=== PATIENT | female | born 1975 | race Caucasian/White ===

== ENCOUNTER 2021-09-28 14:45 | Emergency (ER) | payer MEDICAID ==
[2021-09-28] MEDS ORDERED: IV NORMAL SALINE 1,000ML 1,000 ML IV ONE (15:00)
--- NOTE | 2021-09-28 15:40 | PHYS DOC ---
General Adult EDM: Chief Complaint: PSYCH EVALUATION HPI: HPI: 46-year-old female presents via EMS for psychiatric evaluation. There was some kind of Ativan at her house and the case was called. The patient is not under arrest. She was escorted by police in case she became unruly. Patient tells me that she is feeling paranoid and unhappy. She alternates between saying she wants help and then refusing our help. She is requesting that a family member come back and talk to her but there are no family members here. She adamantly denies suicidal or homicidal ideation. Review of Systems: Review of Systems: Constitutional: Denies fever or chills Eyes: Denies change in visual acuity HENT: Denies nasal congestion or sore throat Respiratory: Denies cough or shortness of breath Cardiovascular: Denies chest pain or edema GI: Denies abdominal pain, nausea, vomiting, bloody stools or diarrhea : Denies dysuria Musculoskeletal: Denies back pain or joint pain Integument: Denies rash Neurologic: Denies headache, focal weakness or sensory changes Endocrine: Denies polyuria or polydipsia Lymphatic: Denies swollen glands Psychiatric: Paranoid, anxious Current Medications: Current Meds: Current Medications Medications (Trade) Dose Ordered Sig/Laron Start Time Stop Time Status Last Admin Dose Admin Lorazepam (Ativan Inj) 2 mg 1X ONCE 09/28/21 15:00 09/28/21 15:18 DC Sodium Chloride 1,000 ml @ 1,000 mls/hr 1X ONCE 09/28/21 15:00 09/28/21 15:59 Allergies: Allergies: Allergies Coded Allergies Type Severity Reaction Last Updated Verified Sulfa (Sulfonamide Antibiotics) Allergy Intermediate 09/28/21 Yes Physical Exam: PE: Constitutional: Well developed, well nourished, no acute distress, non-toxic appearance. [] HENT: Normocephalic, atraumatic, bilateral external ears normal, oropharynx moist, no oral exudates, nose normal. [] Eyes: PERRLA, EOMI, conjunctiva normal, no discharge. [] Neck: Normal range of motion, no tenderness, supple, no stridor. [] Cardiovascular: Heart rate regular rhythm, no murmur [] Lungs & Thorax: Bilateral breath sounds clear to auscultation [] Abdomen: Bowel sounds normal, soft, no tenderness, no masses, no pulsatile masses. [] Skin: Warm, dry, no erythema, no rash. [] Back: No tenderness, no CVA tenderness. [] Extremities: No tenderness, no cyanosis, no clubbing, ROM intact, no edema. [] Neurologic: Alert and oriented X 3, normal motor function, normal sensory function, no focal deficits noted. [] Psychologic: Affect scattered, pressured, mood paranoid, anxious. [] EKG: EKG: [] Radiology/Procedures: Radiology/Procedures: [] Heart Score: C/O Chest Pain: N/A Risk Factors: Risk Factors: DM, Current or recent (<one month) smoker, HTN, HLP, family history of CAD, obesity. Risk Scores: Score 0 - 3: 2.5% MACE over next 6 weeks - Discharge Home Score 4 - 6: 20.3% MACE over next 6 weeks - Admit for Clinical Observation Score 7 - 10: 72.7% MACE over next 6 weeks - Early Invasive Strategies Course & Med Decision Making: Course & Med Decision Making Pertinent Labs and Imaging studies reviewed. (See chart for details) Negotiated with the patient for 20 convince her to let us help her. We were able to convince her to give her 2 mg of Ativan IM. Even after 15 to 20 minutes, the patient continued to refuse to let us do any lab work or give her any further medications. She continued to alternate between saying she needed help and then saying that she refuses to have help. She consistently stated no homicidal or suicidal ideation. I did not believe it was appropriate to force the patient. She is not under arrest. I told her several times that we wanted to help her and that we had her best interests in mind. I told her we will be happy to explain every step of the process and everything that we did. She continued to refuse to let us draw blood or put in an IV. She knows that it is snowing outside and that it is dangerous to go out there. She still wants to be discharged AMA. [] Rebecca Disclaimer: Rebecca Disclaimer: This electronic medical record was generated, in whole or in part, using a voice recognition dictation system. Departure Departure: Impression: Primary Impression: Paranoia (psychosis) Disposition: 07 LEFT AWOL/ELOPED Condition: STABLE Referrals: PCP,NO (PCP) TELLO LAGUNA DO Sep 28, 2021 15:40
== END 2021-09-28 16:00 | disposition left against medical advice (07) ==
LOC: ER 14:45
DX: F22 Delusional disorders (principal); Z88.2 Allergy status to sulfonamides
CPT/HCPCS: 99283